=== PATIENT | male | born 1945 | race Caucasian/White ===

== ENCOUNTER 2018-07-04 05:28 | Inpatient (IN) ==
[2018-07-04] MEDS ORDERED: Sod Chloride 0.9% Inj 1,000 ML IV.SIG ONE (06:31)
--- NOTE | 2018-07-04 06:35 | ED ---
HPI General Chief complaint: Recheck/Abnormal Lab/Rx Stated complaint: Medical Clearance Time Seen by Provider: 07/04/18 06:13 Source: EMS and RN notes reviewed Mode of arrival: EMS Limitations: altered mental status and physical limitation History of Present Illness HPI narrative: 72-year-old male was brought in by EMS from local residential for abnormal kidney function lab results. Patient has history of chronic kidney disease, hypertension, diabetes, hyperlipidemia, BPH status post prostate surgery, encephalopathy and CAD status post CABG. outpatient lab work done yesterday shows BUN of 65, creatinine 3.77 with GFR of 16. skilled nursing staff was advised by physician to bring patient to ED for evaluation. Patient has no complaint now except generalized malaise and weakness. Patient denies any headache. Patient denies any chest pain or shortness of breath. Patient denies abdominal pain. Onset (ago): day(s) Location: upper extremity and lower extremity Radiation: non-radiation Severity: moderate Pain Consistency: constant Relieving factors: none Exacerbating factors: none Associated symptoms: Reports denies other symptoms Treatments prior to arrival: Reports none Related Data Home Medications Medication Instructions Recorded Confirmed aspirin 81 mg PO DAILY 07/04/18 07/04/18 lisinopril-hydrochlorothiazide 1 tab PO DAILY 07/04/18 07/04/18 metoprolol tartrate 25 mg PO BID 07/04/18 07/04/18 simvastatin 40 mg PO QPM 07/04/18 07/04/18 Allergies Allergy/AdvReac Type Severity Reaction Status Date / Time No Known Allergies Allergy Verified 07/04/18 05:36 Review of Systems ROS: all other systems reviewed are negative [facility] Medical History Medical History Benign prostate hyperplasia (Acute) Cerebrovascular disease (Acute) Chronic kidney disease (CKD) (Acute) Encephalopathy (Acute) Hyperlipidemia (Acute) Hypertension (Acute) Type 2 diabetes mellitus (Acute) Surgical History Surgical History Hx of CABG (Acute) Hx of transurethral resection of prostate (Acute) Social History Social History Substance History: No History of Abuse Second Hand Smoke Exposure: No Smoking Status: Never smoker How Often Do You Have a Drink Containing Alcohol: Never Recent Travel in [facility] within the Last 8 Weeks: No Recent Out of Country Travel within the Last 8 Weeks: No Immunization History Tetanus Immunization: <5 Years Exam Narrative Exam Narrative: GENERAL: Well-nourished, well-developed patient. SKIN: Focused skin assessment warm/dry. HEAD: Normocephalic. EYES: No scleral icterus. No injection or drainage. NECK: Supple, trachea midline. No JVD or lymphadenopathy. CARDIOVASCULAR: Regular rate and rhythm without murmurs, gallops, or rubs. RESPIRATORY: Breath sounds equal bilaterally. No accessory muscle use. GASTROINTESTINAL: Abdomen soft, non-tender, nondistended. MUSCULOSKELETAL: No cyanosis, or edema. BACK: Nontender without obvious deformity. No CVA tenderness. Neurologic exam: Patient is lethargic in bed. Patient answer questions occasionally. Unable to assess the movement of the extremity. Course Reevaluation(s) Reevaluation #1: The patient was initially evaluated by Dr. Franco and signed out to me at 7:00 AM at the beginning of my shift pending labs and admission for acute on chronic renal insufficiency. See his note for further details. On my assessment the patient is awake and alert and denies any physical complaints. His mucous membranes are dry. He is oriented to person only. He was given a liter of normal saline bolus by the previous provider for report of acute on chronic renal insufficiency from the residential that he was sent in from. Labs performed yesterday showed BUN of 65, creatinine 3.77, GFR 16. The patient 's chart was reviewed and labs on 06/20/18 showed a BUN of 12, creatinine 1.54, GFR 44. The rest of the patient's labs from today were also reviewed. Case discussed with [facility] hospitalist Dr. Torres who will admit the patient to their service. Time: 07:53 Initial Documented Vital Signs Temperature 98.2 F 07/04/18 05:36 Pulse Rate 81 07/04/18 05:36 Respiratory Rate 18 07/04/18 05:36 Blood Pressure 128/67 07/04/18 05:36 Pulse Oximetry 98 07/04/18 05:36 Last Documented Vital Signs Temperature 98.2 F 07/04/18 05:44 Pulse Rate 79 07/04/18 05:44 Respiratory Rate 18 07/04/18 05:44 Blood Pressure 128/67 07/04/18 05:44 Pulse Oximetry 97 07/04/18 06:45 Medical Decision Making MDM Narrative Medical decision making narrative: 72-year-old male with generalized malaise and weakness. Patient has elevated BUN/creatinine outpatient. Medical Screen Exam Complete: Yes Emergency Medical Condition: Yes Lab Data Result diagrams: 07/04/18 06:45 07/04/18 06:45 Lab Results 07/04/18 07/04/18 07/04/18 Range/Units 06:45 06:45 06:45 WBC 8.8 (4.0-11.0) th/mm3 RBC 4.90 (4.50-5.90) mil/mm3 Hgb 14.1 (13.0-17.0) gm/dL Hct 42.3 (39.0-51.0) % MCV 86.3 (80.0-100.0) fL MCH 28.9 (27.0-34.0) pg MCHC 33.5 (32.0-36.0) % RDW 14.2 (11.6-17.2) % Plt Count 264 (150-450) th/mm3 MPV 9.0 (7.0-11.0) fL Neut % (Auto) 63.3 (16.0-70.0) % Lymph % (Auto) 24.2 (9.0-44.0) % [place] % (Auto) 9.0 H (0.0-8.0) % Eos % (Auto) 2.5 (0.0-4.0) % Baso % (Auto) 1.0 (0.0-2.0) % Neut # (Auto) 5.6 (1.8-7.7) th/mm3 Lymph # (Auto) 2.1 (1.0-4.8) th/mm3 [place] # (Auto) 0.8 (0.0-0.9) th/mm3 Eos # (Auto) 0.2 (0.0-0.4) th/mm3 Baso # (Auto) 0.1 (0.0-0.2) th/mm3 WBC Differential . Differential Comment Auto diff final Sodium 139 (136-145) meq/L Potassium 4.9 (3.5-5.1) meq/L Chloride 105 (98-107) meq/L Carbon Dioxide 23.8 (21.0-32.0) meq/L Anion Gap 10 (5-15) meq/L BUN 60 H (7-18) mg/dL Creatinine 3.21 H (0.60-1.30) mg/dL Estimated GFR 19 L (>89) mL/min Random Glucose 112 H (74-106) mg/dL Calcium 9.3 (8.5-10.1) mg/dL Phosphorus 3.2 (2.5-4.9) mg/dL Magnesium 2.7 H (1.5-2.5) mg/dL Total Bilirubin 0.6 (0.2-1.0) mg/dL AST 24 (15-37) U/L ALT 21 (12-78) U/L Alkaline Phosphatase 122 H (45-117) U/L Total Creatine Kinase 159 (39-308) U/L B-Natriuretic Peptide 9 (0-100) pg/mL Total Protein 9.4 H D (6.4-8.2) g/dL Albumin 3.6 (3.4-5.0) g/dL TSH 1.280 (0.358-3.740) uIU/mL Imaging Data Radiologist's impression: Chest X-Ray 07/04/18 06:31 CONCLUSION: No evidence of acute cardiopulmonary process. Discharge Plan Discharge Disposition Patient Disposition: ED Admit(ED Internal Use Only) Discharge Condition Condition: Stable Discharge Details Diagnosis: Acute on chronic renal insufficiency Physicians Team ED Provider: Pankaj Morillo Primary Care Provider: UNKNOWN, Rxs /Orders / Referrals /Forms Prescriptions: No Action lisinopril-hydrochlorothiazide 20-12.5 mg Tablet 1 tab PO DAILY RF: 0 aspirin 325 mg Tablet 81 mg PO DAILY RF: 0 simvastatin 40 mg Tablet 40 mg PO QPM RF: 0 metoprolol tartrate 25 mg Tablet 25 mg PO BID RF: 0 Status ED Status: With Doctor
[2018-07-04 06:57] LABS: Baso # (Auto) 0.1 th/mm3 (0.0-0.2); Eos # (Auto) 0.2 th/mm3 (0.0-0.4); Eos % (Auto) 2.5 % (0.0-4.0); Hematocrit 42.3 % (39.0-51.0); Hemoglobin 14.1 gm/dL (13.0-17.0); Lymph # (Auto) 2.1 th/mm3 (1.0-4.8); Lymph % (Auto) 24.2 % (9.0-44.0); Mean Corpuscular HGB Conc 33.5 % (32.0-36.0); Mean Corpuscular Hemoglobin 28.9 pg (27.0-34.0); Mean Corpuscular Volume 86.3 fL (80.0-100.0); Mono # (Auto) 0.8 th/mm3 (0.0-0.9); Neut # (Auto) 5.6 th/mm3 (1.8-7.7); Neut % (Auto) 63.3 % (16.0-70.0); Platelet Count 264 th/mm3 (150-450); Red Cell Distribution Width 14.2 % (11.6-17.2); White Blood Count 8.8 th/mm3 (4.0-11.0)
[2018-07-04 07:18] LABS: Alanine Aminotransferase 21 U/L (12-78); Albumin 3.6 g/dL (3.4-5.0); Anion Gap 10 meq/L (5-15); Aspartate Aminotransferase 24 U/L (15-37); Blood Urea Nitrogen 60 mg/dL (7-18); Calcium 9.3 mg/dL (8.5-10.1); Carbon Dioxide 23.8 meq/L (21.0-32.0); Chloride 105 meq/L (98-107); Glomerular Filtration Rate 19 mL/min (>89); Glucose,Random 112 mg/dL (74-106); Magnesium 2.7 mg/dL (1.5-2.5); Phosphorus 3.2 mg/dL (2.5-4.9); Sodium 139 meq/L (136-145)
[2018-07-04 07:23] LABS: Potassium 4.9 meq/L (3.5-5.1)
[2018-07-04 07:28] LABS: Alkaline Phosphatase 122 U/L (45-117); Creatine Kinase 159 U/L (39-308); Total Protein 9.4 g/dL (6.4-8.2)
--- NOTE | 2018-07-04 07:36 | XR ---
EXAM DATE: 07/04/2018 7:21 AM EST AGE/SEX: 72 years / Male INDICATIONS: Shortness of breath. CLINICAL DATA: This is the patient's initial encounter. Patient reports that signs and symptoms have been present for 1 day and indicates a pain score of 0/10. MEDICAL/SURGICAL HISTORY: Cerebrovascular disease. Hypertension. CABG. COMPARISON: No prior exams available for comparison. FINDINGS: A single AP view of the chest demonstrates the lungs to be symmetrically aerated without evidence of mass, infiltrate or effusion. The cardiomediastinal contours are unremarkable. Osseous structures a re intact. CONCLUSION: No evidence of acute cardiopulmonary process. Electronically signed by: Elijah Hicks MD 07/04/2018 7:34 AM EST
[2018-07-04] MEDS ORDERED: Acetaminophen 325 MG Tablet PO PRN (08:26)
--- NOTE | 2018-07-04 08:34 | P.HPIM ---
History of Present Illness Primary Care Physician: UNKNOWN Chief Complaint: PETER on CKD History of Present Illness: 72-year-old male with a history of chronic kidney disease, hypertension, diabetes, hyperlipidemia, BPH status post prostate surgery, encephalopathy and CAD status post CABG. Patient brought in by EMS from local group home for abnormal kidney function lab results. Patient is a poor historian therefore information gathered from prior computerized charting, patient and physical exam.Outpatient lab work done yesterday shows BUN of 65, creatinine 3.77 with GFR of 16. [facility] staff was advised by physician to bring patient to ED for evaluation. Patient has no complaint now except generalized malaise and weakness. Patient denies any headache. Patient denies any chest pain or shortness of breath. Patient denies abdominal pain. Patient had a recent hospitalization 06/11 -> for evaluation of recurrent falls and weakness. Patient with negative CVA workup thus far, clinical course complicated by persistent encephalopathy, respiratory distress that required intubation and mechanical ventilation and severe dysphagia. Then was discharge to SNF for PT/OT rehab. - Medical History Hypertension Stroke HLD BPH DM II - Surgical History TURP CABG - Family History Sister Alzheimer disease Mother Alzheimer disease - Social History Denies ETOH use or tobacco use Inpatient Certification Inpatient Certification: I certify that the inpatient services were ordered in accordance with Medicare regulations governing the order. This includes certification that hospital inpatient services are reasonable and necessary and in the case of services not specified as inpatient-only under 42 CFR 419.22(n), that they are appropriately provided as inpatient services in accordance to with the 2-midnight benchmark under 43 CFR 412.3(e) Estimated Total Length of Stay (Days): 3 Plans for Post Hospital Care: SNF Medications and Allergies Allergies Allergy/AdvReac Type Severity Reaction Status Date / Time No Known Allergies Allergy Verified 07/04/18 05:36 Home Medications Medication Instructions Recorded Confirmed Type aspirin 81 mg PO DAILY 07/04/18 07/04/18 History lisinopril-hydrochlorothiazide 1 tab PO DAILY 07/04/18 07/04/18 History metoprolol tartrate 25 mg PO BID 07/04/18 07/04/18 History simvastatin 40 mg PO QPM 07/04/18 07/04/18 History Active Medications: Active Medications Acetaminophen (Tylenol) 650 mg PO Q4H PRN PRN Reason: Temp > 100.4 Al Hydroxide/Mg Hydroxide (Milk Of Magnesia Liq) 30 ml PO Q12H PRN PRN Reason: Mild Constipation Sodium Chloride (Ns Inj) 1,000 mls @ 84 mls/hr IV.CONT .[id number] JORDY Lactulose (Lactulose Liq) 30 ml PO DAILY PRN PRN Reason: SEVERE CONSITIPATION Ondansetron HCl (Zofran Inj) 4 mg IV.PUSH Q6H PRN PRN Reason: NAUSEA OR VOMITING Senna/Docusate Sodium (Anjelica-Colace) 1 tab PO BID JORDY Sodium Chloride (Ns Flush) 2 ml IV.FLUSH BID JORDY Sodium Chloride (Ns Flush) 2 ml IV.FLUSH PRN PRN PRN Reason: FLUSH AFTER USING IV ACCESS Physical Exam Vital signs: Last Vital Signs Temp 98.2 F 07/04/18 05:44 Pulse 78 07/04/18 08:26 Resp 20 07/04/18 08:26 BP 116/62 07/04/18 08:26 Pulse Ox 97 07/04/18 08:26 Narrative: GENERAL: This is a 72 year old male patient, in no apparent distress. CARDIOVASCULAR: Regular rate and rhythm RESPIRATORY: Clear to auscultation. Breath sounds equal bilaterally. GASTROINTESTINAL: Abdomen soft, non-tender, nondistended. Normal active bowel sounds MUSCULOSKELETAL: Extremities without clubbing, cyanosis, or edema. NEURO: Alert & Oriented to person. Patient able to tell me that he is in the hospital, but confused at times Moves all ext x4 Results Labs CBC & Chem 7: 07/04/18 06:45 07/04/18 06:45 Caprini VTE Risk Assessment Caprini VTE Risk Assessment: Moderate/High Risk (score >= 2) Caprini Risk Assessment Model: Point Value = 1 Point Value = 2 Point Value = 3 Point Value = 5 Age 41-60 Minor surgery BMI > 25 kg/m2 Swollen legs Varicose veins or History of unexplained or recurrent spontaneous Oral contraceptives or hormone replacement Sepsis (< 1 month) Serious lung disease, including pneumonia (< 1 month) Abnormal pulmonary function Acute myocardial infarction Congestive heart failure (< 1 month) History of inflammatory bowel disease Medical patient at bed rest Age 61-74 Arthroscopic surgery Major open surgery (> 45 min) Laparoscopic surgery (> 45 min) Malignancy Confined to bed (> 72 hours) Immobilizing plaster cast Central venous access Age >= 75 History of VTE Family history of VTE Factor V Leiden Prothrombin [id number] Lupus anticoagulant Anticardiolipin antibodies Elevated serum homocysteine Heparin-induced thrombocytopenia Other congenital or acquired thrombophilia Stroke (< 1 month) Elective arthroplasty Hip, pelvis, or leg fracture Acute spinal cord injury (< 1 month) Prophylaxis Regimen: Total Risk Factor Score Risk Level Prophylaxis Regimen 0-1 Low Early ambulation 2 Moderate Order ONE of the following: *Sequential Compression Device (SCD) *Heparin 5000 units SQ BID 3-4 Higher Order ONE of the following medications: *Heparin 5000 units SQ TID *Enoxaparin/Lovenox 40 mg SQ daily (WT < 150 kg, CrCl > 30 mL/min) *Enoxaparin/Lovenox 30 mg SQ daily (WT < 150 kg, CrCl > 10-29 mL/min) *Enoxaparin/Lovenox 30 mg SQ BID (WT < 150 kg, CrCl > 30 mL/min) AND/OR *Sequential Compression Device (SCD) 5 or more Highest Order ONE of the following medications: *Heparin 5000 units SQ TID (Preferred with Epidurals) *Enoxaparin/Lovenox 40 mg SQ daily (WT < 150 kg, CrCl > 30 mL/min) *Enoxaparin/Lovenox 30 mg SQ daily (WT < 150 kg, CrCl > 10-29 mL/min) *Enoxaparin/Lovenox 30 mg SQ BID (WT < 150 kg, CrCl > 30 mL/min) AND *Sequential Compression Device (SCD) Assessment and Plan Plan 72-year-old male with a history of chronic kidney disease, hypertension, diabetes, hyperlipidemia, BPH status post prostate surgery, encephalopathy and CAD status post CABG. Patient brought in by EMS from local group home for abnormal kidney function lab results. Patient is a poor historian therefore information gathered from prior computerized charting, patient and physical exam.Outpatient lab work done yesterday shows BUN of 65, creatinine 3.77 with GFR of 16. [facility] staff was advised by physician to bring patient to ED for evaluation. Patient has no complaint now except generalized malaise and weakness. Patient denies any headache. Patient denies any chest pain or shortness of breath. Patient denies abdominal pain. Patient had a recent hospitalization 06/11 -> for evaluation of recurrent falls and weakness. Patient with negative CVA workup thus far, clinical course complicated by persistent encephalopathy, respiratory distress that required intubation and mechanical ventilation and severe dysphagia. Then was discharge to SNF for PT/OT rehab. PETER on CKD -likely related to poor PO intake/dehydration IV fluids renal US recheck BMP in AM Hypertension Hold patient lisinopril at this time due to PETER Continue metoprolol 25 mg Po BID Hx of CVA Continue Aspirin 81 mg daily and Simvastatin 40 mg QPM HLD Continue Simvastatin 40 mg QPM DM II diabetic diet accuchecks ACHS with SSI DVT prophylaxis with SCDs
[2018-07-04] MEDS ORDERED: Dextrose 50% in Water 50 ML Vial IV.PUSH PRN (08:38)
[2018-07-04] MEDS: Sod Chloride 0.9% Inj 1,000 ML IV.CONT SCH ×2 (09:05→21:28)
[2018-07-04] MEDS: Metoprolol Tartrate 25 MG Tablet PO SCH ×2 (09:23→21:28)
[2018-07-04] MEDS: Senna/Docusate Sodium 8.6/50 MG Tablet PO SCH ×2 (09:23→21:29)
[2018-07-04 10:42] LABS: Bilirubin,Urine Negative (Negative); Clarity,Urine Clear (Clear); Color,Urine Yellow (Yellw/Straw); Glucose,Urine (UA) Negative (Negative); Leukocyte Esterase,Urine Small (Negative); Nitrite,Urine Negative (Negative); PH,Urine 5.5 (5.0-8.5); Urobilinogen,Urine 0.2 mg/dL (Less than 2)
[2018-07-04 10:43] LABS: Specific Gravity,Urine 1.017 (1.002-1.035)
[2018-07-04 10:49] LABS: Bacteria,Urine Occasional /hpf; Hyaline Casts,Urine 4 /lpf (0-3); Mucus,Urine Few /lpf (Occasional); Squamous Epithelial Cell,Urine 2 /hpf (0-5); Uric Acid Crystals,Urine Occasional /hpf
--- NOTE | 2018-07-04 10:53 | US ---
EXAM DATE: 07/04/2018 10:36 AM EST AGE/SEX: 72 years / Male INDICATIONS: Increased BUN/Creatinine. CLINICAL DATA: This is the patient's initial encounter. Patient reports that signs and symptoms have been present for 1 day and indicates a pain score of 0/10. MEDICAL/SURGICAL HISTORY: Diabetes mellitus type II. BPH. CVA. Chronic kidney disease. Encephal opathy. Hyperlipidemia. Hypertension. . CABG. TURP. COMPARISON: No prior exams available for comparison. MEASUREMENTS: Right Kidney:__12.6 x 6.1 x 5.4 cm Left Kidney:__10.1 x 5.0 x 4.2 cm FINDINGS: Right Kidney: Mild increase in renal cortical echogenicity is noted. Cortical medullary distinction i s well-preserved. 12 mm cyst is identified in the upper pole. No mass or hydronephrosis. Left Kidney: Mild increase in renal cortical echogenicity is noted. Several echogenic foci are identi fied. Largest is identified in the lower pole and measures 1.4 cm.. No mass or hydronephrosis. Bladder: Small bladder diverticula are seen along the posterior bladder wall. Other: None. CONCLUSION: 1. Mild increased echogenicity of the renal cortex. 2. No evidence of hydronephrosis. 3. Left nephrolithiasis. 4. Small bladder diverticula Electronically signed by: Elijah Hicks MD 07/04/2018 10:51 AM EST
--- NOTE | 2018-07-04 12:21 | ECG ---
Date Performed: 07/04/2018 Time Performed: 07:31:28 PTAGE: 72 years EKG: Sinus rhythm NORMAL ECG NO PREVIOUS TRACING DOCTOR: Spencer Fang Interpretating Date/Time 07/04/2018 12:19:15
[2018-07-04] MEDS: Insulin NovoLOG Aspart Correctional Sugar Inj SQ SCH ×3 (13:24→21:32)
[2018-07-05] MEDS: Sod Chloride 0.9% Inj 1,000 ML IV.CONT SCH ×4 (02:05→17:25)
[2018-07-05] MEDS: Insulin NovoLOG Aspart Correctional Sugar Inj SQ SCH ×4 (08:00→21:26)
[2018-07-05] MEDS: Metoprolol Tartrate 25 MG Tablet PO SCH ×2 (08:52→21:24)
[2018-07-05] MEDS: Senna/Docusate Sodium 8.6/50 MG Tablet PO SCH ×2 (08:53→21:24)
--- NOTE | 2018-07-05 10:33 | P.CONPAL ---
Consult Service: Palliative Care Requesting Physician: Rhianna Esqueda Reason for Consult: a. To assist with evaluation and management of symptoms including: pain, weakness b. To assist medical decision maker(s) with: better understanding of current medical conditions; weighing benefits/burdens of medical treatment options; making medical treatment decisions. Primary Care Provider: UNKNOWN History of Present Illness History of Present Illness: Is a 72-year-old male who presented to the emergency room from a local [facility] for abnormal outpatient kidney function lab results. Upon presentation, patient was unable to provide any significant history. Labs revealed BUN 65, creatinine 3.77, and a GFR of 16. Patient was complaining of weakness and malaise. Of note, patient had recent hospitalization from 06/11/18 to 06/23/18 due to recurrent falls. Palliative care was following at that time as well. During his previous admission, patient had a complicated course with persistent encephalopathy, respiratory distress requiring intubation, and severe dysphasia. At time of discharge on previous admission, renal function showed BUN 12, creatinine 1.54, GFR 44. He was discharged to local [facility] for PT /OT. Patient has been evaluated by speech therapy who is recommending pured diet with honey thick liquids. He is also been evaluated by PT, patient was agitated and not participating. He is dependent on all of his care. Current labs: WBC 8.8, hemoglobin 14.1, hematocrit 42.3, platelet 262, sodium 139, potassium 4.9, chloride 105, carbon dioxide 23.8, BUN/creatinine 60/3.21, GFR 19, glucose 112, magnesium 2.7, phosphorus 3.2, calcium 9.3, bilirubin 0.6, protein 9.4 Patient has a history of stroke in 2007 with residual right-sided weakness. Patient and healthcare surrogate report he was able to ambulate initially with a walker and then with a walking cane, though mostly drug his right foot. Aside from that, he was mostly independent of his care until he sustained 2 falls with injuries. On prior admission patient was started on Parkinson's/ dementia meds, they both feel he made some improvement after discharge once arriving to [facility] for rehab. Patient is somewhat lethargic but will arouse easily and engages in conversation with encouragement from healthcare surrogate been. Speech starts clear then becomes slurred/mumbled. During my conversation patient has multiple complaints of facility and staff, they both feel that patient's recent decline is due to staff not feeding the patient, and "just leaving him sit in the [place]elley." Patient denies not participating in therapy , healthcare surrogate states he was never updated by physical therapy or nursing staff regarding whether or not patient was progressing with rehab. Attempted to explore physical therapy attempts today, reported agitation with staff, as well as staff attempts to encourage p.o. intake, both deny this occurred. Healthcare surrogate reports that patient's goal is to return home and to go on a trip to [place]. Discussed that if this is to occur he will need to start participating in therapy and increase nutrition intake, however he will likely continue to lose mobility due to Parkinson's/dementia. Explored signs of progression of illness. [facility] does not seem to be accepting, repeatedly states he just needs to get up and walk. Repeatedly states that facility staff has not been pushing him enough to participate. He reports patient had a sign outside of his room advising staff not to give patient any liquids, he feels this is why patient's renal function is worsened this time and why he has had worsening immobility. Advised he was refusing to take fluids from nursing staff this admission, he states he just does not eat a lot. Advised that nursing staff would not force patient to eat/drink, if the patient chooses not to that is his decision. Been states "no it is not, he needs to listen to the doctors." Discussed risks for aspiration. Will need to continue to reexplore progression of dementia and risk for increased weakness due to hospitalizations and inability to participate in physical therapy. At this time, they would like to maximize treatments and return to a different skilled facility to continue rehab in hopes of regaining strength enough to return home. Function/Cognitive Trajectory: Patient has a history of stroke with residual right-sided weakness in 2007. After that he was able to ambulate with a walker in room in May, he began having falls and worsening weakness with a complicated hospital course requiring intubation, he was encephalopathic and severe dysphasia. He was [facility] to [facility]. At time of discharge on previous admission, patient was encephalopathic minimal to no speech, he is now mostly oriented and able to communicate with speech that is initially clear but becomes mumbled. Review of Systems Constitutional: Reports fatigue, Reports lack of energy, Reports malaise, Reports weakness Eyes: Denies change in vision Ears, Nose, Mouth, and Throat: Reports difficulty swallowing, Reports dry mouth Cardiovascular: Denies chest pain Respiratory: Denies cough, Denies wheezing Gastrointestinal: Denies abdominal pain, Denies nausea, Denies vomiting Genitourinary: Denies difficulty urinating Musculoskeletal: Reports decreased muscle mass, Reports limited joint movement, Reports muscle weakness Skin/Breast: Denies change in skin color Neurologic: Reports abnormal speech, Reports confusion, Reports frequent falls, Reports sensory deficit, Reports weakness Psychiatric: Reports behavioral changes, Reports confusion, Reports irritability Endocrine: Denies cold intolerance, Denies heat intolerance Hematologic/Lymphatic: Denies easy bleeding Allergic/Immunologic: Denies GI upset with certain foods PMFSH - History History Provided By: Medical Record, Bailiff / EMT - Medical History Medical History: Medical History (Last Reviewed 07/05/18 @ 10:37 by THANIA Small) Benign prostate hyperplasia Cerebrovascular disease Chronic kidney disease (CKD) Encephalopathy Hyperlipidemia Hypertension Type 2 diabetes mellitus - Surgical History Surgical History: Surgical History (Last Reviewed 07/05/18 @ 10:37 by THANIA Small) Hx of CABG Hx of transurethral resection of prostate - Family History Family History: Family History (Last Updated 07/05/18 @ 10:39 by THANIA Small) Sister Alzheimer disease Mother Alzheimer disease Father Trauma - Social History I have reviewed the patient's Social History: Yes - Tobacco History Second Hand Smoke Exposure: No Tobacco Use In Past 30 Days: No Smoking Status: Cognitive impairment - Alcohol History How Often Do You Have a Drink Containing Alcohol: Never - Substance Use History Substance History: No History of Abuse - Travel History Recent Travel in the [facility] Within the Last 8 Weeks: No Recent Travel Out of the Country Within the Last 8 Weeks: No - Immunization History Tetanus Immunization: <5 Years Medications and Allergies Active Medications: Active Medications Acetaminophen (Tylenol) 650 mg PO Q4H PRN PRN Reason: Temp > 100.4 Al Hydroxide/Mg Hydroxide (Milk Of Magnesia Liq) 30 ml PO Q12H PRN PRN Reason: Mild Constipation Aspirin (Aspirin Chew) 81 mg PO DAILY JORDY Last Admin: 07/04/18 09:24 Dose: 81 mg Dextrose (D50w Vial) 50 ml IV.PUSH UNSCH PRN PRN Reason: PER HYPOGLYCEMIA PROTOCOL Glucagon (Glucagon Inj) 1 mg OTHER PRN PRN PRN Reason: for Hypoglycemia Protocol Sodium Chloride (Ns Inj) 1,000 mls @ 100 mls/hr IV.CONT .Q10H [facility] Last Admin: 07/05/18 05:37 Dose: Not Given Insulin Aspart (Novolog Insulin Correctional Sugar Inj) 0 unit SQ ACHS [facility]; Protocol Last Admin: 07/04/18 21:32 Dose: Not Given Lactulose (Lactulose Liq) 30 ml PO DAILY PRN PRN Reason: SEVERE CONSITIPATION Lorazepam (Ativan Inj) 0.5 mg IV.PUSH Q6H PRN PRN Reason: ANXIETY AND/OR AGITATION Last Admin: 07/04/18 23:49 Dose: 0.5 mg Metoprolol Tartrate (Lopressor) 25 mg PO BID [facility] Last Admin: 07/04/18 21:28 Dose: 25 mg Ondansetron HCl (Zofran Inj) 4 mg IV.PUSH Q6H PRN PRN Reason: NAUSEA OR VOMITING Pravastatin Sodium (Pravachol) 80 mg PO DAILY@1800 [facility] Last Admin: 07/04/18 17:25 Dose: Not Given Senna/Docusate Sodium (Anjelica-Colace) 1 tab PO BID [facility] Last Admin: 07/04/18 21:29 Dose: 1 tab Sodium Chloride (Ns Flush) 2 ml IV.FLUSH BID [facility] Last Admin: 07/04/18 21:29 Dose: Not Given Sodium Chloride (Ns Flush) 2 ml IV.FLUSH PRN PRN PRN Reason: FLUSH AFTER USING IV ACCESS Allergies Allergy/AdvReac Type Severity Reaction Status Date / Time No Known Allergies Allergy Verified 07/04/18 05:36 Home Medications Medication Instructions Recorded Confirmed Type aspirin 81 mg PO DAILY 07/04/18 07/04/18 History lisinopril-hydrochlorothiazide 1 tab PO DAILY 07/04/18 07/04/18 History metoprolol tartrate 25 mg PO BID 07/04/18 07/04/18 History simvastatin 40 mg PO QPM 07/04/18 07/04/18 History Advance Directives Living Will: Yes Healthcare Surrogate: Yes Health Care Surrogate Name and Number: Been Physical Exam Vital Signs: Vital Signs - 24 hr 07/04/18 16:00 07/04/18 20:00 07/05/18 00:00 Temperature 98.5 F 98.0 F 98.0 F Pulse Rate 84 70 68 Respiratory Rate 20 18 17 Blood Pressure 150/76 H 149/64 H 143/68 H Pulse Oximetry 95 90 L 95 07/05/18 08:00 Temperature 97.9 F Pulse Rate 71 Respiratory Rate 17 Blood Pressure 148/68 H Pulse Oximetry 95 I&O: Intake & Output 07/03/18 07/04/18 07/05/18 07/06/18 06:59 06:59 06:59 06:59 Intake Total 2149 Balance 2149 Weight 72.575 kg 150 kg Physical Exam: CONSTITUTIONAL/GENERAL: This is an adequately nourished patient, in no apparent distress. TUBES/LINES/DRAINS: Peripheral IV SKIN: Abrasion on right elbow. Pale. Skin temperature appropriate. Not diaphoretic. HEAD: Atraumatic. Normocephalic. EYES: Pupils equal and round and reactive. Extraocular motions intact. No scleral icterus. No injection or drainage. Fundi not examined. ENT: Hearing grossly normal. Nose without bleeding or purulent drainage. Mouth dry with crusted blood. NECK: Trachea midline. Supple, nontender. No palpable thyroid enlargement or nodularity. CARDIOVASCULAR: Regular rate and rhythm without murmurs, gallops, or rubs. No JVD. Peripheral pulses symmetric. RESPIRATORY/CHEST: Symmetric, unlabored respirations. Clear to auscultation. Breath sounds equal bilaterally. No wheezes, rales, or rhonchi. GASTROINTESTINAL: Abdomen soft, non-tender, nondistended. No hepato-splenomegaly , or palpable masses. No guarding. Bowel sounds present. GENITOURINARY: Without palpable bladder distension. Church catheter in place. MUSCULOSKELETAL: Extremities weak x4. Right hand contracted at rest but is able to extend with limited fine motor. LYMPHATICS: No palpable cervical or supraclavicular adenopathy. NEUROLOGICAL: Lethargic but arouses easily. Speech starts clear in terms mumbled. Oriented. Follows simple commands PSYCHIATRIC: Irritable Diagnostic Tests Laboratory: Laboratory Results - last 72 hr 07/04/18 07/04/18 07/04/18 06:45 06:45 06:45 WBC 8.8 RBC 4.90 Hgb 14.1 Hct 42.3 MCV 86.3 MCH 28.9 MCHC 33.5 RDW 14.2 Plt Count 264 MPV 9.0 Neut % (Auto) 63.3 Lymph % (Auto) 24.2 [place] % (Auto) 9.0 H Eos % (Auto) 2.5 Baso % (Auto) 1.0 Neut # (Auto) 5.6 Lymph # (Auto) 2.1 [place] # (Auto) 0.8 Eos # (Auto) 0.2 Baso # (Auto) 0.1 WBC Differential . Differential Comment Auto diff final Sodium 139 Potassium 4.9 Chloride 105 Carbon Dioxide 23.8 Anion Gap 10 BUN 60 H Creatinine 3.21 H Estimated GFR 19 L POC Glucose Random Glucose 112 H Calcium 9.3 Phosphorus 3.2 Magnesium 2.7 H Total Bilirubin 0.6 AST 24 ALT 21 Alkaline Phosphatase 122 H Total Creatine Kinase 159 B-Natriuretic Peptide 9 Total Protein 9.4 H D Albumin 3.6 TSH 1.280 Urine Color Urine Clarity Urine pH Ur Specific [place] Urine Protein Urine Glucose (UA) Urine Ketones Urine Occult Blood Urine Nitrate Urine Bilirubin Urine Urobilinogen Ur Leukocyte Esterase Urine RBC Urine WBC Ur Squamous Epith Cells Uric Acid Crystals Urine Bacteria Hyaline Casts Urine Mucus Micro UA Comment Ur Microscopic Review Urine Culture Comments 07/04/18 07/04/18 07/04/18 09:37 13:22 17:25 WBC RBC Hgb Hct MCV MCH MCHC RDW Plt Count MPV Neut % (Auto) Lymph % (Auto) [place] % (Auto) Eos % (Auto) Baso % (Auto) Neut # (Auto) Lymph # (Auto) [place] # (Auto) Eos # (Auto) Baso # (Auto) WBC Differential Differential Comment Sodium Potassium Chloride Carbon Dioxide Anion Gap BUN Creatinine Estimated GFR POC Glucose 94 113 H Random Glucose Calcium Phosphorus Magnesium Total Bilirubin AST ALT Alkaline Phosphatase Total Creatine Kinase B-Natriuretic Peptide Total Protein Albumin TSH Urine Color Yellow Urine Clarity Clear Urine pH 5.5 Ur Specific [place] 1.017 Urine Protein Trace Urine Glucose (UA) Negative Urine Ketones Negative Urine Occult Blood Negative Urine Nitrate Negative Urine Bilirubin Negative Urine Urobilinogen 0.2 Ur Leukocyte Esterase Small H Urine RBC 2 Urine WBC 14 H Ur Squamous Epith Cells 2 Uric Acid Crystals Occasional H Urine Bacteria Occasional H Hyaline Casts 4 Urine Mucus Few H Micro UA Comment Culture indicated Ur Microscopic Review Microscopic reviewed Urine Culture Comments Culture indicated 07/04/18 07/05/18 21:31 08:13 WBC RBC Hgb Hct MCV MCH MCHC RDW Plt Count MPV Neut % (Auto) Lymph % (Auto) [place] % (Auto) Eos % (Auto) Baso % (Auto) Neut # (Auto) Lymph # (Auto) [place] # (Auto) Eos # (Auto) Baso # (Auto) WBC Differential Differential Comment Sodium Potassium Chloride Carbon Dioxide Anion Gap BUN Creatinine Estimated GFR POC Glucose 82 87 Random Glucose Calcium Phosphorus Magnesium Total Bilirubin AST ALT Alkaline Phosphatase Total Creatine Kinase B-Natriuretic Peptide Total Protein Albumin TSH Urine Color Urine Clarity Urine pH Ur Specific [place] Urine Protein Urine Glucose (UA) Urine Ketones Urine Occult Blood Urine Nitrate Urine Bilirubin Urine Urobilinogen Ur Leukocyte Esterase Urine RBC Urine WBC Ur Squamous Epith Cells Uric Acid Crystals Urine Bacteria Hyaline Casts Urine Mucus Micro UA Comment Ur Microscopic Review Urine Culture Comments Result Diagrams: 07/04/18 06:45 07/04/18 06:45 Imaging: Impressions Abdomen/Bladder Ultrasound 07/04/18 00:00 CONCLUSION: 1. Mild increased echogenicity of the renal cortex. 2. No evidence of hydronephrosis. 3. Left nephrolithiasis. 4. Small bladder diverticula Patient/Family Conference Issues Discussed: * Palliative care role, purpose, approach * Additional medical, psychosocial, and spiritual history * Patients general health, functional status, and cognitive changes in the months leading up to the current hospitalization * Patient/family understanding of the current medical problems * Patient/family understanding of prognosis * Patients goals of care as best understood from advance directives and/or conversations and/or values * Current medical treatment options and benefits/burdens of those options * Likely scenarios comparing ongoing aggressive care with a transition to comfort measures only * Questions answered to the best of my ability * Palliative care contact information provided Assessment and Plan - Symptom Scale (1) Weakness 0-10 Scale: Unable to quantify (2) Dysphagia 0-10 Scale: Unable to quantify Pertinent Non-Medical Issues: Psychosocial: Patient originally from [place]. 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 He has no biological children was never . He has 1 sister who is . Was living with a friend who is his caregiver prior to previous hospitalization, since that time [facility]. Spiritual: 911 Operator available Legal: Has power of city attorney and living will on file. Patient appears to have limited capacity, has designated been as healthcare surrogate to assist in decision making.. Ethical issues impacting care: None Important Contacts: [facility]win Akins [phone] Prognosis: Patient has a history of CVA in 2008. Had recent hospitalization that was complicated by encephalopathy, respiratory failure, and renal failure. He is now hospitalized for worsening renal function. Given recent decline, history of dementia, dysphasia, and multiple hospitalizations, patient is at great risk for complications and/or . Code Status: No Code DNR Plan: Legal decision maker: Patient has limited capacity to make his own decisions at this time. He has designated been as his healthcare surrogate. Goals: Patient and his surrogate would like to maximize current medical treatment and hopes to return back to a different rehab in hopes of regaining strength to return home. Discussed with corrections caseworker possibility of going to a different rehab facility on discharge as patient healthcare surrogate both have multiple complaints. insulation manager Mercedes states she will look into it. CODE STATUS: DNR SYMPTOMS: --Weakness: Had ongoing weakness complicated by encephalopathy on previous admission. Likely he was not making much progress in rehab prior to this hospitalization. He has been resistant to attempts by physical therapy during this admission. He is at great risk for progressive weakness due to immobility , poor nutrition, and Parkinson's/dementia. --Dysphasia: Recently developed severe dysphasia on last admission. Has not been eating or drinking since discharge per patient and Antonina gets reports. Bedside nurse now reporting patient is not taking any oral fluids for her. He presented with dry mouth and cracked and bleeding tongue. Surrogate seems to be struggling with understanding progression of patient's illnesses. Reporting patient only ate one meal per day and [facility] staff was not feeding him. Palliative care will continue to follow during hospital course as condition evolves, to assist patient/decision-maker with understanding of medical conditions, weighing benefits/burdens of treatment options, for clarification of goals of treatment. Additionally will assist with any symptoms of palliative concern Appreciation Thank you for the opportunity to participate in the care of JUAN SAUER. Attestation Collaborating Comments: Dr. Carrillo Attestation: To help prompt me to consider important information that might be impacting today's encounter and assessment, information from prior notes written by myself or my colleagues may have been "brought forward" into today's note. My signature on this note, however, is an attestation that I personally performed the exam, history, and/or decision-making noted today, and, unless otherwise indicated, the interactions with patient, family, and staff as well as the review of records all occurred today. I also attest that the listed assessment and stated plan reflect my best clinical judgment today based on the combination of historical information, prior notes, and today's exam/ interactions. When time spent is documented, it refers only to time spent today by the signer, or if indicated, combined time spent today by collaborating physician/nurse practitioner.
--- NOTE | 2018-07-05 11:41 | P.PNIM ---
Subjective Interval history: Pt awake and tries to be conversive. His POA is at the bedside. Pts POA complains about the patient not receiving fluids to drink while at the rehab and feels that this is what brought on the pts dehydration. Nursing staff in the room reports that the pt has been refusing to eat and drink here but the pts POA does not feel that this is the case. He states that the pt was able to feed himself when he at rehab. Physical Exam Vital signs: Last Vital Signs Temp 97.9 F 07/05/18 08:00 Pulse 71 07/05/18 08:00 Resp 17 07/05/18 08:00 BP 148/68 H 07/05/18 08:00 Pulse Ox 95 07/05/18 08:00 Narrative: GENERAL: This is a 72 year old male patient, in no apparent distress. CARDIOVASCULAR: Regular rate and rhythm RESPIRATORY: Clear to auscultation. Breath sounds equal bilaterally. GASTROINTESTINAL: Abdomen soft, non-tender, nondistended. Normal active bowel sounds MUSCULOSKELETAL: Extremities without clubbing, cyanosis, or edema. NEURO: Alert & Oriented to person. Patient able to tell me that he is in the hospital, but confused at times. Moves all ext x4 Results Labs CBC & Chem 7: 07/04/18 06:45 07/04/18 06:45 Imaging Abdomen/Bladder Ultrasound 07/04/18 00:00 CONCLUSION: 1. Mild increased echogenicity of the renal cortex. 2. No evidence of hydronephrosis. 3. Left nephrolithiasis. 4. Small bladder diverticula Chest X-Ray 07/04/18 06:31 CONCLUSION: No evidence of acute cardiopulmonary process. Assessment and Plan Plan 72-year-old male with a history of chronic kidney disease, hypertension, diabetes, hyperlipidemia, BPH status post prostate surgery, encephalopathy and CAD status post CABG. Patient brought in by EMS from local [facility] for abnormal kidney function lab results. Patient is a poor historian therefore information gathered from prior computerized charting, patient and physical exam.Outpatient lab work done yesterday shows BUN of 65, creatinine 3.77 with GFR of 16. long-term staff was advised by physician to bring patient to ED for evaluation. Patient has no complaint now except generalized malaise and weakness. Patient denies any headache. Patient denies any chest pain or shortness of breath. Patient denies abdominal pain. Patient had a recent hospitalization 06/11 -> for evaluation of recurrent falls and weakness. Patient with negative CVA workup thus far, clinical course complicated by persistent encephalopathy, respiratory distress that required intubation and mechanical ventilation and severe dysphagia. Then was discharge to SNF for PT/OT rehab. PETER on CKD -likely related to poor PO intake/dehydration - Cont. IV fluids - Renal US (07/04/18) --> 1. Mild increased echogenicity of the renal cortex. 2. No evidence of hydronephrosis. 3. Left nephrolithiasis. 4. Small bladder diverticula - Pt with reported poor PO intake from nursing staff but the pts POA at bedside disagrees with this - The staff does attempt to help feed the pt but they state he us refusing. - Palliative Care has been consulted to help with goals of care - Will recheck labs in AM - Cont. modified diet with purred foods and honey thickened liquids per ST recommendations - PT daily Hypertension - Hold patient lisinopril at this time due to PETER - Continue metoprolol 25 mg Po BID Hx of CVA - Continue Aspirin 81 mg daily and Simvastatin 40 mg QPM HLD - Continue Simvastatin 40 mg QPM DM II - diabetic diet accuchecks ACHS with SSI DVT prophylaxis with SCDs Attending Attestation Patient examined. Assessment and plan formulated with Mariposa George PA-C. I agree with the above. ivf for peter/dehydration spoke with POA plan for dc back to snf once hydrated. Progress Note: Quality VTE Deep Vein Thrombosis/Pulmonary Embolism Present on Admission: No
[2018-07-06] MEDS: Sod Chloride 0.9% Inj 1,000 ML IV.CONT SCH ×2 (06:21→17:11)
[2018-07-06 07:06] LABS: Baso # (Auto) 0.1 th/mm3 (0.0-0.2); Baso % (Auto) 1.2 % (0.0-2.0); Eos # (Auto) 0.2 th/mm3 (0.0-0.4); Eos % (Auto) 3.3 % (0.0-4.0); Hematocrit 34.9 % (39.0-51.0); Hemoglobin 11.7 gm/dL (13.0-17.0); Lymph # (Auto) 1.2 th/mm3 (1.0-4.8); Lymph % (Auto) 20.6 % (9.0-44.0); Mean Corpuscular HGB Conc 33.5 % (32.0-36.0); Mean Corpuscular Hemoglobin 28.7 pg (27.0-34.0); Mean Corpuscular Volume 85.7 fL (80.0-100.0); Mono # (Auto) 0.6 th/mm3 (0.0-0.9); Mono % (Auto) 10.5 % (0.0-8.0); Neut # (Auto) 3.8 th/mm3 (1.8-7.7); Neut % (Auto) 64.4 % (16.0-70.0); Platelet Count 180 th/mm3 (150-450); Red Blood Count 4.07 mil/mm3 (4.50-5.90); Red Cell Distribution Width 13.9 % (11.6-17.2); White Blood Count 5.9 th/mm3 (4.0-11.0)
[2018-07-06 07:43] LABS: Calcium 8.5 mg/dL (8.5-10.1); Potassium 4.5 meq/L (3.5-5.1)
[2018-07-06] MEDS: Insulin NovoLOG Aspart Correctional Sugar Inj SQ SCH ×3 (07:46→17:11)
--- NOTE | 2018-07-06 09:41 | P.PNIM ---
Subjective Interval history: Nursing staff reports that the pt is still refusing to eat. He is reportedly spitting out whatever they try to feed him. He is not wanting the thickened liquids either. Physical Exam Vital signs: Last Vital Signs Temp 97.9 F 07/06/18 04:00 Pulse 63 07/06/18 04:00 Resp 18 07/06/18 04:00 BP 147/72 H 07/06/18 04:00 Pulse Ox 95 07/06/18 04:00 Narrative: GENERAL: This is a 72 year old male patient, in no apparent distress. CARDIOVASCULAR: Regular rate and rhythm RESPIRATORY: Clear to auscultation. Breath sounds equal bilaterally. GASTROINTESTINAL: Abdomen soft, non-tender, nondistended. Normal active bowel sounds MUSCULOSKELETAL: Extremities without clubbing, cyanosis, or edema. NEURO: Alert & Oriented to person. Patient able to tell me that he is in the hospital, but confused at times. Moves all ext x4 Results Labs CBC & Chem 7: 07/06/18 05:16 07/06/18 05:16 Imaging Abdomen/Bladder Ultrasound 07/04/18 00:00 CONCLUSION: 1. Mild increased echogenicity of the renal cortex. 2. No evidence of hydronephrosis. 3. Left nephrolithiasis. 4. Small bladder diverticula Chest X-Ray 07/04/18 06:31 CONCLUSION: No evidence of acute cardiopulmonary process. Assessment and Plan Plan 72-year-old male with a history of chronic kidney disease, hypertension, diabetes, hyperlipidemia, BPH status post prostate surgery, encephalopathy and CAD status post CABG. Patient [facility] for abnormal kidney function lab results. Patient is a poor historian therefore information gathered from prior computerized charting, patient and physical exam.Outpatient lab work done yesterday shows BUN of 65, creatinine 3.77 with GFR of 16. detention staff was advised by physician to bring patient to ED for evaluation. Patient has no complaint now except generalized malaise and weakness. Patient denies any headache. Patient denies any chest pain or shortness of breath. Patient denies abdominal pain. Patient had a recent hospitalization 06/11 -> for evaluation of recurrent falls and weakness. Patient with negative CVA workup thus far, clinical course complicated by persistent encephalopathy, respiratory distress that required intubation and mechanical ventilation and severe dysphagia. Then was discharge to SNF for PT/OT rehab. PETER on CKD -likely related to poor PO intake/dehydration - Cont. IV fluids - Renal US (07/04/18) --> 1. Mild increased echogenicity of the renal cortex. 2. No evidence of hydronephrosis. 3. Left nephrolithiasis. 4. Small bladder diverticula - Pt with reported poor PO intake from nursing staff but the pts POA at bedside disagrees with this - The staff does attempt to help feed the pt but they state he us refusing. - Palliative Care has been consulted to help with goals of care - Repeat labs on 07/06 with Cr. 1.74 - Cont. modified diet with purred foods and honey thickened liquids per ST recommendations. Pt is refusing to eat and drink per nursing staff. Pts POA reported on 07/05 that the pt was feeding himself at rehab and was eating without difficulty but this does not appear to be the case during this hospitalization and the pt was obviously dehydrated at admission. - Palliative care is following to help guide us with goals of care. - PT daily Hypertension - Hold patient lisinopril at this time due to PETER - Continue metoprolol 25 mg Po BID Hx of CVA - Continue Aspirin 81 mg daily and Simvastatin 40 mg QPM HLD - Continue Simvastatin 40 mg QPM DM II - diabetic diet - Accuchecks ACHS with SSI DVT prophylaxis with SCDs ADDENDUM: - Pt and POA met with palliative care CORRECTIONS OFFICER today and they agreed they did not want a PEG tube placed. Hospice informational meeting was ordered but pt and POA want to give rehab another try. - The pts labs look closer to baseline renal function. - Pt is planned to be discharged back to [facility] to try to continue his rehab efforts with PT/OT/ST daily. - He will be discharged on heart healthy pureed diet with honey thickened liquids. - We will stop his previous Lisinopril/HCTZ combination medication and just continue him on Lisinopril 20mg daily for BP control as well as Clonidine 0.1mg Q6H PRN while at rehab. Progress Note: Quality VTE Deep Vein Thrombosis/Pulmonary Embolism Present on Admission: No
[2018-07-06] MEDS: Metoprolol Tartrate 25 MG Tablet PO SCH (09:43)
[2018-07-06] MEDS: Senna/Docusate Sodium 8.6/50 MG Tablet PO SCH (09:43)
--- NOTE | 2018-07-06 13:31 | P.PNPAL ---
Reason for Visit Reason for visit: a. To assist with evaluation and management of symptoms including: pain, weakness b. To assist medical decision maker(s) with: better understanding of current medical conditions; weighing benefits/burdens of medical treatment options; making medical treatment decisions. Subjective Subjective/Interval History: Is a 72-year-old male who presented to the emergency room from a [facility] for abnormal outpatient kidney function lab results. Upon presentation, patient was unable to provide any significant history. Labs revealed BUN 65, creatinine 3.77, and a GFR of 16. Patient was complaining of weakness and malaise. Of note, patient had recent hospitalization from 06/11/18 to 06/23/18 due to recurrent falls. Palliative care was following at that time as well. During his previous admission, patient had a complicated course with persistent encephalopathy, respiratory distress requiring intubation, and severe dysphasia. At time of discharge on previous admission, renal function showed BUN 12, creatinine 1.54, GFR 44. He [facility]. Patient has been evaluated by speech therapy who is recommending pured diet with honey thick liquids. He is also been evaluated by PT, patient was agitated and not participating. He is dependent on all of his care. Patient has a history of stroke in 2007 with residual right-sided weakness. Patient and healthcare surrogate report he was able to ambulate initially with a walker and then with a walking cane, though mostly drug his right foot. Aside from that, he was mostly independent of his care until he sustained 2 falls with injuries. On prior admission patient was started on Parkinson's/ dementia meds, they both feel he made some improvement after discharge once arriving to [facility] for rehab. Patient is somewhat lethargic but will arouse easily and engages in conversation with encouragement from healthcare surrogate been. Speech starts clear then becomes slurred/mumbled. At time of my visit today, patient is drowsy. Attempted to explore his continued refusal to eat. He states that he has been eating anything we will give him. Last nursing and speech therapy documentation essentially stating otherwise. Asked if he is refusing to eat due to not liking thick liquids to which she replies yes. Attempted to discuss his inability to swallow thin or nectar thick liquids and inability to chew solid foods, states "that is not right." Explored possibility of feeding tube if he were to continue not to eat and receive adequate nutrition, he states he would not want artificial feedings or feeding tube placed. Discussed his previously stated goals of he and his healthcare surrogate going on a trip soon as he can walk. Discussed with prolonged immobility and poor nutritional intake, he will likely continue to get weaker and decrease likelihood of progressing with rehab to the point of ambulation. Explored transition to comfort, stating that he would not be forced to eat or participate in rehab if he chooses not to. To that he states "will just have to see ." Again discussed ongoing malnutrition will further prolong his hospitalization, and if he were to return to senior care facility and continue not to eat he will likely have to return to the hospital with similar situation. He again states "I eat everything they give me." Labs today: Creatinine 1.74, GFR 39 Family/Friend Interactions: Call placed to healthcare surrogate been. Discussed conversation had with patient as well as speech therapy and nursing documentation related to eating. Advised he states that he is eating everything provided to him, been reports he tells him the same thing. Sherwin reports patient ate breakfast and lunch yesterday without difficulties, discussed presenting creatinine showing that patient has not had adequate hydration. Discussed that hospital staff nor rehab staff would force patient to eat due to risks for aspiration. Advised that if he were to return to skilled rehab facility and continue to eat, he would likely return to the hospital with similar situation, and this is likely to be recurrent. Explored goals for rehab for increasing strength, not long- term care. Discussed patient's status prior to previous hospitalization versus current functionality during rehab and with current hospitalization. Explored comfort measures versus continued aggressive measures. Explored possibility of feeding tube requirement if patient continues to refuse to eat and not getting adequate nutrition, he is in agreement the patient would not want a feeding tube . Discussed prolonged malnutrition will contribute to prolonged hospitalization , progressive weakness, and ability to participate in rehab if he were to go that route. Sherwin states he has been put in a difficult position, he was unaware until the patient was got sick previously that he had been designated healthcare surrogate. Explored progressive nature of underlying dementia that would eventually lead up to dysphasia, immobility, weakness, confusion, risks for infection, and dependent care being inevitable. Discussed possibility of hospice support at home versus long-term care facility. He is agreeable to meeting with hospice loan representative today. He does not feel he would be able to provide adequate care to the patient given his new care demands. Advance Directives Health Care Surrogate Name and Number: Been Objective Vital Signs: Vital Signs 07/05/18 16:00 07/05/18 20:00 07/06/18 00:00 Temperature 97.6 F 98.4 F 97.4 F L Pulse Rate 73 72 73 Respiratory Rate 17 18 18 Blood Pressure 154/67 H 146/65 H 130/68 Pulse Oximetry 94 L 96 95 07/06/18 04:00 Temperature 97.9 F Pulse Rate 63 Respiratory Rate 18 Blood Pressure 147/72 H Pulse Oximetry 95 Intake & Output 07/05/18 07/06/18 07/06/18 18:59 06:59 18:59 Intake Total 1300 / 1300 1000 / 1000 Balance 1300 / 1300 1000 / 1000 Weight 70.3 kg Intake: IV 1000 / 1000 1000 / 1000 NS Inj 1,000 ML @ 100 mls/hr IV 1000 / 1000 1000 / 1000 .CONT .Q10H JORDY Rx#:[id number] Oral 300 / 300 0 / 0 Other: # Voids 4 # Incontinent Voids 5 Date of Last Bowel Movement 07/05/18 # Bowel Movements 1 Physical Exam: CONSTITUTIONAL/GENERAL: This is an adequately nourished patient, in no apparent distress. TUBES/LINES/DRAINS: Peripheral IV SKIN: Abrasion on right elbow. Pale. Skin temperature appropriate. Not diaphoretic. HEAD: Atraumatic. Normocephalic. EYES: Pupils equal and round and reactive. Extraocular motions intact. No scleral icterus. No injection or drainage. Fundi not examined. ENT: Hearing grossly normal. Nose without bleeding or purulent drainage. Mouth dry with crusted blood. CARDIOVASCULAR: Regular rate and rhythm without murmurs, gallops, or rubs. No JVD. Peripheral pulses symmetric. RESPIRATORY/CHEST: Symmetric, unlabored respirations. Clear to auscultation. Breath sounds equal bilaterally. Congested cough GASTROINTESTINAL: Abdomen soft, non-tender, nondistended. No hepato-splenomegaly , or palpable masses. No guarding. Bowel sounds present. GENITOURINARY: Without palpable bladder distension. MUSCULOSKELETAL: Extremities weak x4. Right hand contracted at rest but is able to extend with limited fine motor. NEUROLOGICAL: Lethargic but arouses easily. Speech starts clear in turns mumbled. Oriented. Follows simple commands PSYCHIATRIC: Drowsy Diagnostic Tests Laboratory: Laboratory Results - last 72 hr 07/04/18 07/04/18 07/04/18 06:45 06:45 06:45 WBC 8.8 RBC 4.90 Hgb 14.1 Hct 42.3 MCV 86.3 MCH 28.9 MCHC 33.5 RDW 14.2 Plt Count 264 MPV 9.0 Neut % (Auto) 63.3 Lymph % (Auto) 24.2 Lumpkin % (Auto) 9.0 H Eos % (Auto) 2.5 Baso % (Auto) 1.0 Neut # (Auto) 5.6 Lymph # (Auto) 2.1 Lumpkin # (Auto) 0.8 Eos # (Auto) 0.2 Baso # (Auto) 0.1 WBC Differential . Differential Comment Auto diff final Sodium 139 Potassium 4.9 Chloride 105 Carbon Dioxide 23.8 Anion Gap 10 BUN 60 H Creatinine 3.21 H Estimated GFR 19 L POC Glucose Random Glucose 112 H Calcium 9.3 Phosphorus 3.2 Magnesium 2.7 H Total Bilirubin 0.6 AST 24 ALT 21 Alkaline Phosphatase 122 H Total Creatine Kinase 159 B-Natriuretic Peptide 9 Total Protein 9.4 H D Albumin 3.6 TSH 1.280 Urine Color Urine Clarity Urine pH Ur Specific Sanford Urine Protein Urine Glucose (UA) Urine Ketones Urine Occult Blood Urine Nitrate Urine Bilirubin Urine Urobilinogen Ur Leukocyte Esterase Urine RBC Urine WBC Ur Squamous Epith Cells Uric Acid Crystals Urine Bacteria Hyaline Casts Urine Mucus Micro UA Comment Ur Microscopic Review Urine Culture Comments 07/04/18 07/04/18 07/04/18 09:37 13:22 17:25 WBC RBC Hgb Hct MCV MCH MCHC RDW Plt Count MPV Neut % (Auto) Lymph % (Auto) Lumpkin % (Auto) Eos % (Auto) Baso % (Auto) Neut # (Auto) Lymph # (Auto) Lumpkin # (Auto) Eos # (Auto) Baso # (Auto) WBC Differential Differential Comment Sodium Potassium Chloride Carbon Dioxide Anion Gap BUN Creatinine Estimated GFR POC Glucose 94 113 H Random Glucose Calcium Phosphorus Magnesium Total Bilirubin AST ALT Alkaline Phosphatase Total Creatine Kinase B-Natriuretic Peptide Total Protein Albumin TSH Urine Color Yellow Urine Clarity Clear Urine pH 5.5 Ur Specific Sanford 1.017 Urine Protein Trace Urine Glucose (UA) Negative Urine Ketones Negative Urine Occult Blood Negative Urine Nitrate Negative Urine Bilirubin Negative Urine Urobilinogen 0.2 Ur Leukocyte Esterase Small H Urine RBC 2 Urine WBC 14 H Ur Squamous Epith Cells 2 Uric Acid Crystals Occasional H Urine Bacteria Occasional H Hyaline Casts 4 Urine Mucus Few H Micro UA Comment Culture indicated Ur Microscopic Review Microscopic reviewed Urine Culture Comments Culture indicated 07/04/18 07/05/18 07/05/18 21:31 08:13 14:37 WBC RBC Hgb Hct MCV MCH MCHC RDW Plt Count MPV Neut % (Auto) Lymph % (Auto) [place] % (Auto) Eos % (Auto) Baso % (Auto) Neut # (Auto) Lymph # (Auto) [place]kin # (Auto) Eos # (Auto) Baso # (Auto) WBC Differential Differential Comment Sodium Potassium Chloride Carbon Dioxide Anion Gap BUN Creatinine Estimated GFR POC Glucose 82 87 121 H Random Glucose Calcium Phosphorus Magnesium Total Bilirubin AST ALT Alkaline Phosphatase Total Creatine Kinase B-Natriuretic Peptide Total Protein Albumin TSH Urine Color Urine Clarity Urine pH Ur Specific [place]ford Urine Protein Urine Glucose (UA) Urine Ketones Urine Occult Blood Urine Nitrate Urine Bilirubin Urine Urobilinogen Ur Leukocyte Esterase Urine RBC Urine WBC Ur Squamous Epith Cells Uric Acid Crystals Urine Bacteria Hyaline Casts Urine Mucus Micro UA Comment Ur Microscopic Review Urine Culture Comments 07/05/18 07/05/18 07/06/18 17:29 21:26 05:16 WBC 5.9 RBC 4.07 L Hgb 11.7 L D Hct 34.9 L MCV 85.7 MCH 28.7 MCHC 33.5 RDW 13.9 Plt Count 180 D MPV 9.0 Neut % (Auto) 64.4 Lymph % (Auto) 20.6 [place] % (Auto) 10.5 H Eos % (Auto) 3.3 Baso % (Auto) 1.2 Neut # (Auto) 3.8 Lymph # (Auto) 1.2 L[place]kin # (Auto) 0.6 Eos # (Auto) 0.2 Baso # (Auto) 0.1 WBC Differential . Differential Comment Auto diff final Sodium Potassium Chloride Carbon Dioxide Anion Gap BUN Creatinine Estimated GFR POC Glucose 112 H 107 Random Glucose Calcium Phosphorus Magnesium Total Bilirubin AST ALT Alkaline Phosphatase Total Creatine Kinase B-Natriuretic Peptide Total Protein Albumin TSH Urine Color Urine Clarity Urine pH Ur Specific [place] Urine Protein Urine Glucose (UA) Urine Ketones Urine Occult Blood Urine Nitrate Urine Bilirubin Urine Urobilinogen Ur Leukocyte Esterase Urine RBC Urine WBC Ur Squamous Epith Cells Uric Acid Crystals Urine Bacteria Hyaline Casts Urine Mucus Micro UA Comment Ur Microscopic Review Urine Culture Comments 07/06/18 07/06/18 07/06/18 05:16 07:45 11:40 WBC RBC Hgb Hct MCV MCH MCHC RDW Plt Count MPV Neut % (Auto) Lymph % (Auto) [place] % (Auto) Eos % (Auto) Baso % (Auto) Neut # (Auto) Lymph # (Auto) [place]kin # (Auto) Eos # (Auto) Baso # (Auto) WBC Differential Differential Comment Sodium 142 Potassium 4.5 Chloride 111 H Carbon Dioxide 23.0 Anion Gap 8 BUN 24 H Creatinine 1.74 H Estimated GFR 39 L POC Glucose 94 110 Random Glucose 91 Calcium 8.5 D Phosphorus Magnesium Total Bilirubin AST ALT Alkaline Phosphatase Total Creatine Kinase B-Natriuretic Peptide Total Protein Albumin TSH Urine Color Urine Clarity Urine pH Ur Specific [place] Urine Protein Urine Glucose (UA) Urine Ketones Urine Occult Blood Urine Nitrate Urine Bilirubin Urine Urobilinogen Ur Leukocyte Esterase Urine RBC Urine WBC Ur Squamous Epith Cells Uric Acid Crystals Urine Bacteria Hyaline Casts Urine Mucus Micro UA Comment Ur Microscopic Review Urine Culture Comments Result Diagrams: 07/06/18 05:16 07/06/18 05:16 Microbiology: Microbiology 07/04/18 09:37 Urine Culture - Final Clean Catch Urine >100,000 cfu/mL mixed hernandez (probable contaminants) Assessment and Plan - Symptom Scale (1) Weakness 0-10 Scale: Unable to quantify (2) Dysphagia 0-10 Scale: Unable to quantify Pertinent Non-Medical Issues: Psychosocial: Patient originally from [place]. 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 He has no biological children was never . He has 1 sister who is . Was living with a friend who is his caregiver prior to previous hospitalization, since that time has been in senior care facility for rehab. Spiritual: Grizzly Worker available Legal: Has power of compliance attorney and living will on file. Patient appears to have limited capacity, has designated been as healthcare surrogate to assist in decision making.. Ethical issues impacting care: None Important Contacts: Sherwin Akins [phone] Prognosis: Patient has a history of CVA in 2007. Had recent hospitalization that was complicated by encephalopathy, respiratory failure, and renal failure. He is now hospitalized for worsening renal function. Given recent decline, history of dementia, dysphasia, and multiple hospitalizations, patient is at great risk for complications and/or . Code Status: No Code DNR Plan: Legal decision maker: Patient has limited capacity to make his own decisions at this time. He has designated been as his healthcare surrogate. Goals: Healthcare surrogate is now leaning towards transition to comfort care. He is now understanding the patient's refusal to eat well compound current medical condition and progressing of weakness. He is now contemplating transition to long-term care versus rehab. He is now understanding that poor nutritional intake will lessen his ability to participate in skilled therapy. He is agreeable to meeting with hospice loan representative today to discuss possible transition to comfort care with hospice in a long-term facility. Will need case management assistance in placing patient. Patient and his healthcare surrogate are now declining feeding tube placement if it were required. CODE STATUS: DNR SYMPTOMS: --Weakness: Had ongoing weakness complicated by encephalopathy on previous admission. Likely he was not making much progress in rehab prior to this hospitalization. He has been resistant to attempts by physical therapy during this admission. He is at great risk for progressive weakness due to immobility , poor nutrition, and Parkinson's/dementia. --Dysphasia: Recently developed severe dysphasia on last admission, could also likely be due to progression of Parkinson's/dementia. Patient still not eating , failed swallow again today for nectar thick and solid foods. Patient states he does not like thick liquids or pured food. Declining feeding tube placement. Palliative care will continue to follow during hospital course as condition evolves, to assist patient/decision-maker with understanding of medical conditions, weighing benefits/burdens of treatment options, for clarification of goals of treatment. Additionally will assist with any symptoms of palliative concern
== END 2018-07-06 18:11 ==
LOC: NEPE 05:28 → NEDA 08:16 → N07 13:34
PROVIDERS: ADMIT Hospitalist; ATTEND Hospitalist